=== PATIENT | male | born 1935 | race Two or more races ===

== ENCOUNTER 2017-06-17 10:29 | Emergency (ER) | payer OTHER ==
[2017-06-17 10:38] VITALS: BMI 25.8
--- NOTE | 2017-06-17 12:19 | PDOC ---
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 He also has HTN Chief Compliant: n, v, d x 4 days PMH: ITP, HTN FH: Pt has not recently traveled outside the country in the last 30 days. Pt has not been in contact with people who have traveled out of the country, in contact with people who have been ill with fever, n, v, d. SH: smoking use: NONE illicit drug use: NONE alcohol use: NONE employment/educational status: sexual history: PSH: Home med use noted on MAR Allergies:nka Immunizations: PCP: Cards: Dr. Lawrence Onc/hem: Dr. Seo <Britney Fenton - Last Filed: 06/17/17 14:53> <Jose Tidwell - Last Filed: 06/17/17 16:54> - General Chief Complaint: Pain Stated Complaint: ABD PAIN, DIARRHEA Past History - Past Medical History Anemia: Yes (ITP) COPD: No HTN: Yes - Suicide/Smoking/Psychosocial Hx Smoking History: Never smoked Have you smoked in the past 12 months: No Information on smoking cessation initiated: No Hx Alcohol Use: Yes (SOCIAL) Drug/Substance Use Hx: No Substance Use Type: None Hx Substance Use Treatment: No <Britney Fenton - Last Filed: 06/17/17 14:53> <Jose Tidwell - Last Filed: 06/17/17 16:54> - Past Medical History Allergies/Adverse Reactions: Allergies Allergy/AdvReac Type Severity Reaction Status Date / Time No Known Allergies Allergy Verified 06/17/17 10:35 Home Medications: Ambulatory Orders Ciprofloxacin [Cipro (Restricted To Id)] 500 mg PO BID #14 tablet 06/17/17 Ondansetron [Zofran Odt -] 4 mg SL BID #14 od.tablet 06/17/17 metroNIDAZOLE [Flagyl -] 500 mg PO TID #21 tablet 06/17/17 Review of Systems - Review of Systems Able to Perform ROS?: Yes Comments:: 06/17/17 13:22 General statement: Pt says he has n, v, d Hematology: + history of bleeding with ITP Skin: Neg for lesions, rash, bruising. HEENT: Neg symptoms Respiratory: Neg SOB or difficulty in breathing Cardiac: Neg chest pain GI: + pain, n/v : Neg problems on voiding MS: Neg for joint pain/stiffness, no edema Neuro: Neg for LOC, weakness, Endocrine: Neg for excess thirst/hunger, cold/heat intolerance, excess sweating Allergies: Neg for allergies <Britney Fenton - Last Filed: 06/17/17 14:53> *Physical Exam - Vital Signs Last Vital Signs Temp Pulse Resp BP Pulse Ox 98.3 F 60 18 134/88 100 06/17/17 10:36 06/17/17 10:36 06/17/17 10:36 06/17/17 10:36 06/17/17 10:36 - Physical Exam Comments: 06/17/17 13:23 General Appearance: This well appearing 82 yr old male V/S: hemodynamically stable, afebrile Skin: WNL of pt's skin color, no signs of pallor, mottling, cyanosis Head:symmetrical Eyes: EOM's intact, PERRLA Ears: denies pain Nose: patent Throat: lips, teeth, gums, tongue, buccal mucos pink and moist Lungs: Chest symmetry equal. Cap refill <3 seconds. Lung sounds clear Cardiac: PMI at R 4MCL space, pos S1 and S2, regular rate. Abdomen: Soft, round, nontender : Not observed Muscularskeletal: Gait steady, ambulated in to ER, no edema +PMS Neuro: AAOx3, cognitively intact, speech clear and appropriate. <Britney Fenton - Last Filed: 06/17/17 14:53> - Vital Signs Last Vital Signs Temp Pulse Resp BP Pulse Ox 98.3 F 60 18 134/88 100 06/17/17 10:36 06/17/17 10:36 06/17/17 10:36 06/17/17 10:36 06/17/17 10:36 <Jose Tidwell - Last Filed: 06/17/17 16:54> Heart Score/ECG Review - ECG Impressions Comment:: 06/17/17 14:41 EKG performed at 1326 demonstrates sinus rhythm at [address] elevations biphasic T waves V4 V5 V6 Interpreted by me. <Jose Tidwell - Last Filed: 06/17/17 16:54> ED Treatment Course - LABORATORY CBC & Chemistry Diagram: 06/17/17 12:50 06/17/17 12:50 <Britney Fenton - Last Filed: 06/17/17 14:53> - LABORATORY CBC & Chemistry Diagram: 06/17/17 12:50 06/17/17 12:50 - ADDITIONAL ORDERS Additional order review: Laboratory Results 06/17/17 06/17/17 06/17/17 12:50 12:50 12:50 PT with INR 11.50 INR 1.02 PTT (Actin FS) 26.8 L Sodium 135 L Potassium 3.8 Chloride 93 L D Carbon Dioxide 30 D Anion Gap 12 BUN 29 H D Creatinine 1.1 Creat Clearance w eGFR > 60 Random Glucose 142 H D Calcium 9.2 Total Bilirubin 0.6 D AST 25 D ALT 41 D Alkaline Phosphatase 54 Total Protein 6.8 Albumin 3.7 Urine Color Urine Appearance Urine pH Ur Specific [place] Urine Protein Urine Glucose (UA) Urine Ketones Urine Blood Urine Nitrite Urine Bilirubin Urine Urobilinogen Ur Leukocyte Esterase Blood Type O NEGATIVE Antibody Screen Negative 06/17/17 12:42 PT with INR INR PTT (Actin FS) Sodium Potassium Chloride Carbon Dioxide Anion Gap BUN Creatinine Creat Clearance w eGFR Random Glucose Calcium Total Bilirubin AST ALT Alkaline Phosphatase Total Protein Albumin Urine Color Ltyellow Urine Appearance Clear Urine pH 9.0 H D Ur Specific [place] 1.014 Urine Protein Negative Urine Glucose (UA) Negative Urine Ketones Negative Urine Blood Negative Urine Nitrite Negative Urine Bilirubin Negative Urine Urobilinogen Negative Ur Leukocyte Esterase Negative Blood Type Antibody Screen 06/17/17 12:50 RBC 5.31 MCV 88.5 MCHC 33.4 RDW 13.7 MPV 8.4 D Neutrophils % No Result Required. Lymphocytes % No Result Required. <Jose Tidwell - Last Filed: 06/17/17 16:54> Medical Decision Making - Medical Decision Making 06/17/17 13:24 Pt seen and examined. Assessment -Pt looks well, resting on cot, no n, v, d currently in ER -speak with Dr Seo as he's been under recent OP care -spoke with daughter, Triston (cell [phone]) before she left for work. She was concerned with his recent illness and now with n, v, d - Plan -cbc, type/screen -cmp -ua -coags -speek with Dr. seo -ivf zofran if needed. 06/17/17 13:44 -Spoke with Dr. Seo, does not feel this episode is due to pt ITP and treatment she states ITP is unknown cause and has been successful in treatment as Plts are trending up -d/w Dr. Tidwell; ordered CT of abd/pelvic with IV no po due to belly pain and wbc over 16 with n, v,d 06/17/17 14:53 Laboratory Tests 06/17/17 06/17/17 06/17/17 12:50 12:50 12:50 WBC 16.5 H Hgb 15.7 Hct 47.0 Plt Count 155 D PT with INR 11.50 INR 1.02 PTT (Actin FS) 26.8 L Sodium 135 L Potassium 3.8 Chloride 93 L D Carbon Dioxide 30 D Anion Gap 12 BUN 29 H D Creatinine 1.1 Creat Clearance w eGFR > 60 Random Glucose 142 H D <Britney Fenton - Last Filed: 06/17/17 14:53> - Medical Decision Making I reviewed the case of the mid-level practitioner and was available for consultation while in the emergency department <Jose Tidwell - Last Filed: 06/17/17 16:54> *DC/Admit/Observation/Transfer <Britney Fenton - Last Filed: 06/17/17 14:53> <Jose Tidwell - Last Filed: 06/17/17 16:54> Diagnosis at time of Disposition: Colitis - Prescriptions Prescriptions: Ciprofloxacin [Cipro (Restricted To Id)] 500 mg PO BID #14 tablet metroNIDAZOLE [Flagyl -] 500 mg PO TID #21 tablet Ondansetron [Zofran Odt -] 4 mg SL BID #14 od.tablet - Referrals Referrals: Debi Gordon MD [Primary Care Provider] - - Patient Instructions Printed Discharge Instructions: DI for Colitis Additional Instructions: Take all antibiotics as prescribed. Zofran as prescribed for nausea. Drink plenty of fluids. Take an [id number] probiotic as directed on package. Follow-up with your doctor in 2 days. Return to the emergency department for fever severe abdominal pain vomiting inability to tolerate fluids or for any concerns. [place] todos los antibiticos segn lo prescrito. Zofran segn lo prescrito para las nuseas. Beber mucho lquido. [place] un probitico de venta reid abdiaziz se indica en el paquete. Tadeo un seguimiento con piper mdico en 2 mcallister. Regrese a la sherry de emergencias por fiebre, dolor abdominal danial, vmitos, incapacidad para tolerar lquidos o cualquier preocupacin. Print Language: ENGLISH
[2017-06-17 13:12] LABS: HEMOGLOBIN 15.7 GM/dL (11.7-16.9); MCH 29.6 pg (25.7-33.7); MCHC 33.4 g/dl (32.0-35.9); MEAN CELL VOLUME 88.5 fl (80-96); MEAN PLT VOLUME 8.4 fl (7.5-11.1); PLATELET COUNT 155 K/MM3 (134-434); RBC 5.31 M/mm3 (4.00-5.60); RDW 13.7 % (11.9-15.9); WHITE BLOOD COUNT 16.5 K/mm3 (4.0-10.0)
[2017-06-17 13:29] LABS: INR 1.02 (0.82-1.09); PROTHROMBIN TIME (PATIENT) 11.5 SEC (9.98-11.88)
[2017-06-17 13:32] LABS: ACTIVATED PTT 26.8 SECONDS (26.9-34.4)
[2017-06-17 13:46] LABS: ALBUMIN 3.7 g/dl (3.4-5.0); ALK PHOS 54 U/L (45-117); ANION GAP 12 (8-16); BILIRUBIN,TOTAL 0.6 mg/dL (0.2-1.0); BLOOD UREA NITROGEN 29 mg/dL (7-18); CALCIUM 9.2 mg/dL (8.5-10.1); CHLORIDE 93 mmol/L (98-107); CO2 30 mmol/L (21-32); CREATININE 1.1 mg/dL (0.7-1.3); GLUCOSE,RANDOM 142 mg/dL (74-106); POTASSIUM 3.8 mmol/L (3.5-5.1); SGOT/AST 25 U/L (15-37); SGPT/ALT 41 U/L (12-78); SODIUM 135 mmol/L (136-145); TOT PROT 6.8 g/dl (6.4-8.2)
[2017-06-17 13:50] LABS: URINE APPEARANCE CLEAR; URINE BILIRUBIN NEGATIVE (<2.0 mg/dL); URINE BLOOD NEGATIVE (NEGATIVE); URINE COLOR LTYELLOW; URINE GLUCOSE (UA) NEGATIVE (NEGATIVE); URINE KETONE NEGATIVE (NEGATIVE); URINE LEUK ESTERASE NEGATIVE (NEGATIVE); URINE NITRITE NEGATIVE (NEGATIVE); URINE PROTEIN NEGATIVE (NEGATIVE); URINE UROBILINOGEN NEGATIVE mg/dL (0.2-1.0)
[2017-06-17 17:11] VITALS: BP 133/77; PULSE 78; TEMP 98.6
--- NOTE | 2017-06-17 23:43 | EKG ---
Test Reason : Blood Pressure : / mmHG Vent. Rate : 054 BPM Atrial Rate : 054 BPM P-R Int : 144 ms QRS Dur : 086 ms QT Int : 490 ms P-R-T Axes : 060 072 131 degrees QTc Int : 464 ms SINUS BRADYCARDIA WITH ABERRANT COMPLEX LEFT VENTRICULAR HYPERTROPHY WITH REPOLARIZATION ABNORMALITY ABNORMAL ECG WHEN COMPARED WITH ECG OF 27-MAY-2017 14:23, ABERRANT COMPLEX IS SEEN ST NOW DEPRESSED IN LATERAL LEADS Confirmed by NELSON BENSON, ISRAEL ([id number]) on 06/17/2017 11:42:50 PM Referred By: Confirmed By:ISRAEL DAMON MD
== END 2017-06-17 17:11 | disposition home or self-care (01) ==
LOC: JER 10:29
DX: K52.9 Noninfective gastroenteritis and colitis, unspecified (principal); I10 Essential (primary) hypertension; D69.3 Immune thrombocytopenic purpura
CPT/HCPCS: 36415; 74177-TC; 80053; 81003; 85025; 85610; 85730; 86850; 86900; 86901; 93005; 93010; 99285-25

== ENCOUNTER 2018-08-25 10:26 | Emergency (ER) | payer OTHER | END 2018-08-25 11:30 | disposition home or self-care (01) | LOC: JERFT 10:26 ==

== ENCOUNTER 2018-09-01 10:07 | Emergency (ER) | payer OTHER ==
[2018-09-01 10:13] VITALS: TEMP 97.6; BMI 27.4
--- NOTE | 2018-09-01 10:46 | PDOC ---
History of Present Illness <Zoë Chow - Last Filed: 09/01/18 13:19> - General History Source: Patient Exam Limitations: No Limitations - History of Present Illness Initial Comments: 09/01/18 11:07 83 year old male with PMH HTN, thrombocytopenia presented to ED for left ankle/ foot pain x9 days. Pt was seen and evaluated for similar complaint 08/25/18 - was diagnosed with cellulitis, treated with Bactrim and Keflex, pt reported he finished all prescribed medications. Pt reported he saw his PCP Dr. Schneider Saturday, was told to continue antibiotics, and come to ED if symptoms do not improve - which is what brought him to the ED. Pt denied fever, chills, nausea, vomiting. <Vanessa Zurita - Last Filed: 09/01/18 15:40> - General Chief Complaint: Pain, Acute Stated Complaint: LT FOOT PAIN Time Seen by Provider: 09/01/18 10:46 Past History <Zoë Chow - Last Filed: 09/01/18 13:19> - Past Medical History Anemia: Yes (ITP) COPD: No HTN: Yes - Immunization History Immunization Up to Date: No - Suicide/Smoking/Psychosocial Hx Smoking History: Never smoked Have you smoked in the past 12 months: No Hx Alcohol Use: No Drug/Substance Use Hx: No Substance Use Type: None Hx Substance Use Treatment: No <YudithVanessa - Last Filed: 09/01/18 15:40> - Past Medical History Allergies/Adverse Reactions: Allergies Allergy/AdvReac Type Severity Reaction Status Date / Time No Known Allergies Allergy Verified 09/01/18 10:09 Home Medications: Ambulatory Orders Cephalexin [Keflex] 500 mg PO QID #40 capsule 08/25/18 Hydrochlorothiazide 25 mg PO DAILY 08/25/18 Sulfamethoxazole/Trimethoprim [Bactrim Ds -] 1 tab PO BID #14 tablet 08/25/18 Review of Systems - Review of Systems Able to Perform ROS?: Yes Comments:: 09/01/18 11:05 General: denied fever, chills, generalized weakness. HEENT: denied sore throat, rhinorrhea, ear pain. Heart: denied chest pain, palpitations, syncope, diaphoresis. Respiratory: denied shortness of breath, cough, sputum production, hemoptysis. Abdomen: denied abdominal pain, nausea, vomiting, diarrhea, constipation, blood in stool. : denied dysuria, increased urinary frequency, hematuria, urinary incontinence , flank pain. Back: denied back pain. Musculoskeletal: admitted to ankle and foot pain. Neurological: denied headache, dizziness, numbness, tingling, weakness. Skin: denied rash, laceration, abrasion. <YudithVanessa - Last Filed: 09/01/18 15:40> *Physical Exam - Vital Signs Last Vital Signs Temp Pulse Resp BP Pulse Ox 97.6 F 60 18 141/62 99 09/01/18 10:10 09/01/18 10:10 09/01/18 10:10 09/01/18 10:10 09/01/18 10:10 <Zoë Chow - Last Filed: 09/01/18 13:19> - Vital Signs Last Vital Signs Temp Pulse Resp BP Pulse Ox 97.6 F 60 18 141/62 99 09/01/18 10:10 09/01/18 10:10 09/01/18 10:10 09/01/18 10:10 09/01/18 10:10 - Physical Exam Comments: 09/01/18 11:05 Constitutional: Well-nourished, Well-developed, appearing stated age. HEENT: head is normocephalic, atraumatic. EOMI. PERRLA. Neck: supple. Full ROM. Heart: regular rhythm. no murmurs, rubs or gallops. Lungs: clear to auscultation bilaterally. no crackles, rhonchi or wheezing. no stridor. Abdomen: soft, nontender. normal bowel sounds. no rebound, guarding, masses. Left foot/ankle: no erythema. no swelling. pt is unable to bear full weight on left foot. no tenderness to palpation of base of 1st or 5th MT. no tenderness to palpation of medial or lateral malleolus. tenderness to palpation of insertion of achilles tendon to heel. no tenderness to palpation of heel. Extremities: peripheral pulses intact. no lower extremity edema. Neurological: CN 2-12 grossly intact. moves all four extremities. Psych: awake, alert, oriented x3. follows commands. answers questions appropriately. <Vanessa Zurita - Last Filed: 09/01/18 15:40> ED Treatment Course - LABORATORY CBC & Chemistry Diagram: 09/01/18 11:27 09/01/18 11:27 - ADDITIONAL ORDERS Additional order review: Laboratory Results 09/01/18 09/01/18 09/01/18 11:27 11:27 11:27 PT with INR 12.70 INR 1.08 PTT (Actin FS) 35.4 Sodium 135 L Potassium 5.3 H Chloride 105 Carbon Dioxide 23 Anion Gap 7 L BUN 25.0 H Creatinine 1.7 H Est GFR (CKD-EPI)AfAm 42.28 Est GFR (CKD-EPI)NonAf 36.48 Random Glucose 83 Calcium 9.1 Total Bilirubin 0.4 AST 33 ALT 28 Alkaline Phosphatase 55 C-Reactive Protein < 0.3 Total Protein 7.6 Albumin 4.1 09/01/18 11:27 RBC 5.37 MCV 91.7 MCHC 32.9 RDW 14.5 MPV 9.7 D Neutrophils % 65.1 Lymphocytes % 23.8 Monocytes % 8.7 D Eosinophils % 1.8 D Basophils % 0.6 - Medications Given in the ED: ED Medications Discontinued Medications Generic Name Dose Route Start Last Admin Trade Name Freq PRN Reason Stop Dose Admin Acetaminophen 1,000 mg 09/01/18 11:10 09/01/18 12:18 Ofirmev Injection - IVPB 09/01/18 11:11 1,000 mg ONCE ONE Administration <Zoë Chow - Last Filed: 09/01/18 13:19> - LABORATORY CBC & Chemistry Diagram: 09/01/18 11:27 09/01/18 11:27 <Vanessa Zurita - Last Filed: 09/01/18 15:40> Medical Decision Making - Medical Decision Making 09/01/18 11:12 83 year old male with above PMH presented to ED for left ankle/foot pain x9 days. Initial Vital Signs Temp Pulse Resp BP Pulse Ox 97.6 F 60 18 141/62 99 09/01/18 10:10 09/01/18 10:10 09/01/18 10:10 09/01/18 10:10 09/01/18 10:10 Afebrile. No tachycardia. No tachypnea. Mild hypertension. No hypoxia on room air. Labs ordered: CBC, CMP, ESR, CRP Imaging ordered: Left ankle/foot XR Medications ordered: tylenol IV 09/01/18 12:53 Bedside US performed of achilles tendon with Dr. Chow. -No tendon rupture -Liliana prominence on the calcaneus at the site of insertion of the achilles tendon Ankle/foot XR report: EXAM#: TYPE/EXAM: RESULT: [id number] RAD/ANKLE FOOT-LEFT* Left foot and ankle: Pain the left Achilles tendon 3 views of the left foot and ankle have been submitted. A total of 5 images have been obtained. The ankle imaging shows no sign of fracture or subluxation no sign of blastic or lytic changes. Swelling, foreign body or soft tissue is not seen. There is posterior calcaneal spurring indicating achilles tendinitis. 3 views of the left foot reveal bunion formation by the first MTP joint, minimal arthritic changes of the toes and no sign of fracture or subluxation . There is no sign of blastic or lytic changes. If symptoms persist, further imaging may be of help. Reported By: Anastacio Ivy MD 09/01/18 1150 CBC WBC 9.8 K/mm3 (4.0-10.0) 09/01/18 11:27 RBC 5.37 M/mm3 (4.00-5.60) 09/01/18 11:27 Hgb 16.2 GM/dL (11.7-16.9) 09/01/18 11:27 Hct 49.2 % (35.4-49) H 09/01/18 11:27 MCV 91.7 fl (80-96) 09/01/18 11:27 MCH 30.2 pg (25.7-33.7) 09/01/18 11:27 MCHC 32.9 g/dl (32.0-35.9) 09/01/18 11:27 RDW 14.5 % (11.9-15.9) 09/01/18 11:27 Plt Count 209 K/MM3 (134-434) 09/01/18 11:27 MPV 9.7 fl (7.5-11.1) D 09/01/18 11:27 Absolute Neuts (auto) 6.4 K/mm3 (1.5-8.0) 09/01/18 11:27 Neutrophils % 65.1 % (42.8-82.8) 09/01/18 11:27 Lymphocytes % 23.8 % (8-40) 09/01/18 11:27 Monocytes % 8.7 % (3.8-10.2) D 09/01/18 11:27 Eosinophils % 1.8 % (0-4.5) D 09/01/18 11:27 Basophils % 0.6 % (0-2.0) 09/01/18 11:27 Nucleated RBC % 0 % (0-0) 09/01/18 11:27 ESR 11 mm/hr (0-20) 09/01/18 11:27 No leukocytosis. No anemia. ESR negative. CMP Sodium 135 mmol/L (136-145) L 09/01/18 11:27 Potassium 5.3 mmol/L (3.5-5.1) H 09/01/18 11:27 Chloride 105 mmol/L (98-107) 09/01/18 11:27 Carbon Dioxide 23 mmol/L (21-32) 09/01/18 11:27 Anion Gap 7 MMOL/L (8-16) L 09/01/18 11:27 BUN 25.0 mg/dL (7-18) H 09/01/18 11:27 Creatinine 1.7 mg/dL (0.55-1.3) H 09/01/18 11:27 Est GFR (CKD-EPI)AfAm 42.28 09/01/18 11:27 Est GFR (CKD-EPI)NonAf 36.48 09/01/18 11:27 Random Glucose 83 mg/dL (74-106) 09/01/18 11:27 Calcium 9.1 mg/dL (8.5-10.1) 09/01/18 11:27 Total Bilirubin 0.4 mg/dL (0.2-1) 09/01/18 11:27 AST 33 U/L (15-37) 09/01/18 11:27 ALT 28 U/L (13-61) 09/01/18 11:27 Alkaline Phosphatase 55 U/L (45-117) 09/01/18 11:27 C-Reactive Protein < 0.3 MG/DL (0.00-0.3) 09/01/18 11:27 Total Protein 7.6 g/dl (6.4-8.2) 09/01/18 11:27 Albumin 4.1 g/dl (3.4-5.0) 09/01/18 11:27 Mild hyperkalemia. Cr elevated, last 1.3 CRP negative. Medications ordered: normal saline bolus 1000 cc once 09/01/18 15:39 IVF finished. Pt requesting discharge. Pt discharged. <Vanessa Zurita - Last Filed: 09/01/18 15:40> *DC/Admit/Observation/Transfer <Zoë Chow - Last Filed: 09/01/18 13:19> - Discharge Dispostion Decision to Admit order: No <Vanessa Zurita - Last Filed: 09/01/18 15:40> Diagnosis at time of Disposition: Ankle pain, Achilles tendonitis, CKD (chronic kidney disease), Hyperkalemia - Discharge Dispostion Disposition: HOME Condition at time of disposition: Improved - Referrals Referrals: Jose Alberto Schneider MD [Staff Physician] - - Patient Instructions Printed Discharge Instructions: Achilles Tendinopathy, DI for Tendinitis, DI for Achilles Tendinopathy Additional Instructions: Your X-ray showed no fracture. Your blood work showed your kidney function was decreased and your potassium was slightly high, labs were otherwise normal. Have these numbers rechecked by your primary care doctor. Your ultrasound shows a small bony spur, and irritation just below the achilles tendon between the heel bone and the tendon. it is likely due to the spur irritating the achilles tendon you will need to follow up with a air sampling and monitoring. Follow up at Dr. Schneider's office tomorrow to see Podiatry at 1200. Call his office to ensure you have an appointment. let them know you were seen in the emergency room and DR Schneider told you to come to the office at 12:00. Take tylenol over the counter for your pain. Take as advised on label. you can ice and elevate your foot to help with irritation. Return to the Emergency Department if you develop blue discoloration to your toes, increasing pain despite Tylenol use, increasing redness to the area, fever , chest pain, shortness of breath, lightheadedness like you may pass out, or any other new, worsening or concerning symptoms. [place] TRANSLATION PROVIDED VIA [employer]SLATE Guy radiografa no mostr fractura. Guy anlisis de you mostr que guy funcin renal estaba disminuida y guy potasio estaba ligeramente alto, los laboratorios jasvir normales. Solicite a guy mdico de atencin primaria que vuelva a verificar estos nmeros. Guy ecografa muestra un pequeo espoln yandel e irritacin joey debajo del tendn de Donny entre el hueso del taln y el tendn. Es probable que debido a la rplica que irrita el tendn de Donny, deber realizar un seguimiento con un podlogo. Tadeo un seguimiento en la oficina del Dr. Arnol carvalho para ruddy Podiatry al 1200. Llame a guy oficina para asegurarse de tener tiny devin. hgales saber que lo atendieron en la sherry de emergencias y el Dr. Schneider le dijo que viniera a la oficina a las 12:00. Capron tylenol sobre el mostrador para guy dolor. Sarahi abdiaziz se indica en la etiqueta Puedes hielo y elevar tu pie para ayudar con la irritacin. Regrese al Departamento de Emergencias si presenta tiny decoloracin alistair en los dedos de los pies, aumentando el dolor a pesar del uso de Tylenol, aumentando el enrojecimiento de la gideon, fiebre, dolor de pecho, falta de aire al respirar , mareo abdiaziz si se desmayara, o cualquier otro trastorno nuevo o que empeore los sntomas. Print Language: MALAWIAN
[2018-09-01] MEDS ORDERED: ACETAMINOPHEN 1000 MG/100 ML VIAL (NON FORMULARY) IVPB ONE (11:10)
[2018-09-01 11:37] LABS: BASO % 0.6 % (0-2.0); EOS % 1.8 % (0-4.5); HEMATOCRIT 49.2 % (35.4-49); HEMOGLOBIN 16.2 GM/dL (11.7-16.9); LYMPH % 23.8 % (8-40); MCH 30.2 pg (25.7-33.7); MCHC 32.9 g/dl (32.0-35.9); MEAN CELL VOLUME 91.7 fl (80-96); MEAN PLT VOLUME 9.7 fl (7.5-11.1); MONO % 8.7 % (3.8-10.2); NEUT % 65.1 % (42.8-82.8); PLATELET COUNT 209 K/MM3 (134-434); RBC 5.37 M/mm3 (4.00-5.60); RDW 14.5 % (11.9-15.9); WHITE BLOOD COUNT 9.8 K/mm3 (4.0-10.0)
[2018-09-01 11:50] LABS: INR 1.08 (0.83-1.09); PROTHROMBIN TIME (PATIENT) 12.7 SEC (9.7-13.0)
[2018-09-01 11:52] LABS: ACTIVATED PTT 35.4 SECONDS (25.2-36.5)
[2018-09-01] MEDS ORDERED: ACETAMINOPHEN INJECTION 100 ML IVPB ONE (11:52)
[2018-09-01 12:10] LABS: ALBUMIN 4.1 g/dl (3.4-5.0); BILIRUBIN,TOTAL 0.4 mg/dL (0.2-1); CALCIUM 9.1 mg/dL (8.5-10.1); CREATININE 1.7 mg/dL (0.55-1.3); POTASSIUM 5.3 mmol/L (3.5-5.1); TOT PROT 7.6 g/dl (6.4-8.2)
[2018-09-01] MEDS ORDERED: SODIUM CHLORIDE 1,000 ML IV STA (12:58)
--- NOTE | 2018-09-01 13:18 | PDOC ---
Documentation entered by Sarah Shaw SCRIBE, acting as scribe for Zoë Chow MD. Zoë Chow MD: This documentation has been prepared by the Valeria batista Adrianna, SCRIBE, under my direction and personally reviewed by me in its entirety. I confirm that the documentation accurately reflects all work, treatment, procedures, and medical decision making performed by me. Attending Attestation - Resident Resident Name: YudithVanessa - ED Attending Attestation I have performed the following: I have examined & evaluated the patient, The case was reviewed & discussed with the resident, I agree w/resident's findings & plan, Exceptions are as noted - HPI HPI: 83 Y M, with PMH of HTN and thrombocytopenia, who presents to the ED for evaluation of left ankle and foot pain for 9 days. Patient notes he was seen in the ER and diagnosed with cellulitis from a presumed insect bite. He was given Bactrim and Keflex, and followed up with Dr. Ambrose one week ago who advised he continued antibiotics. Patient is near completion of antibiotics (one day remaining). His pain progressively worsened, which prompted his return to the ED today. He is ambulating with difficulty secondary to pain, and has been using a cane for assistance. He did not take anything for pain prior to arrival. He denies fever, chills, or trauma to the affected area. Patient denied following up with an orthopedist or software recruiter. Allergies: NKA, NKDA Surgical History: None reported Social History: None reported PCP: Dr. Jose Alberto Ambrose 09/01/18 13:27 - Physicial Exam PE: 09/01/18 13:09 awake alert lungs clear bilat heart rrr no mrg abd soft nt nd ext wwp. left posterior achilles tendon mild erythema, ttp near insertion on heel. palp bony prominence near achilles insertion. from with plantar and dorsal flextion. neg sanchez test. no leg erthema, min erthema or redness just above bony prominence posterior heel. nuero n/v intact. alert oriented x 3. - Medical Decision Making 09/01/18 13:10 83 yo M with recently diagnosed heel cellulitis from presumed bug bite, here with persistant pain, near complet course bactrim and keflex. repeat visit to ED. dW dr Ambrose, states WBC was 13 in office on last visit 08/25, will be able to follow up wiht a software recruiter on 09/02/18 at his office at noon. differential cellultis, abscess fluid collection, tendonitis. plan bedside US achilles tendon, xray. labs pt WBC improved to 9, ESR and CRP negative. focused ED ultrasound left achilles tendon indication pain swelling r/o rupture, tendonitis focused [facility] ultrasound performed left achilles tendon, images in transverse and long obtained. comparison to right achilles. right achilles normal in appearance. left achilles tendon intact. noted to have bony spur with some caclifcation noted within tendon insertion, periosteal elevation at achilles insertion. small fluid noted just below the tendon posterior to calcaneus between calcaneus and tendon. no increased flow with color flow. impression: calcific tendonitis achilles tendon, bony spur. no tendon rupture. plan pt noted for mild creatinine elevation 1.7, and potassium 5.3 will gently hydrate. d/w dr ambrose. dc on tylenol ice elevation rest and fu podiatry tomorrow. 09/01/18 15:48 EXAM#: TYPE/EXAM: RESULT: [id number] RAD/ANKLE FOOT-LEFT* Left foot and ankle: Pain the left Achilles tendon 3 views of the left foot and ankle have been submitted. A total of 5 images have been obtained. The ankle imaging shows no sign of fracture or subluxation no sign of blastic or lytic changes. Swelling, foreign body or soft tissue is not seen. There is posterior calcaneal spurring indicating achilles tendinitis. 3 views of the left foot reveal bunion formation by the first MTP joint, minimal arthritic changes of the toes and no sign of fracture or subluxation . There is no sign of blastic or lytic changes. If symptoms persist, further imaging may be of help. Reported By: Anastacio Ivy MD 09/01/18 11:50
[2018-09-01] MEDS ORDERED: SODIUM POLYSTYRENE SULFONATE 15 GM/60 ML BOTTLE PO ONE (14:45)
[2018-09-01 16:06] VITALS: BP 144/69; PULSE 59
== END 2018-09-01 16:05 | disposition home or self-care (01) ==
LOC: JER 10:07
PROC: 3E0337Z Introduction of Electrolytic and Water Balance Substance into Peripheral Vein, Percutaneous Approach (ICD-10-PCS; principal; 2018-09-01)
PROC: 3E033NZ Introduction of Analgesics, Hypnotics, Sedatives into Peripheral Vein, Percutaneous Approach (ICD-10-PCS; 2018-09-01)
PROC: BL43ZZZ Ultrasonography of Lower Extremity Tendons (ICD-10-PCS; 2018-09-01)
DX: M76.61 Achilles tendinitis, right leg (principal); E87.5 Hyperkalemia; N18.9 Chronic kidney disease, unspecified; I10 Essential (primary) hypertension; D69.6 Thrombocytopenia, unspecified
CPT/HCPCS: 36415; 73610-TC-LT-FY; 73630-TC-LT; 76882-TC-LT-FY; 80053; 85025; 85610; 85651; 85730; 86140; 96361; 96374; 99282-25; J0131; J7030